=== PATIENT | female | born 1985 | race Caucasian/White ===

== ENCOUNTER 2022-03-19 05:34 | Outpatient (CLI) | payer SELFPAY ==
[~2022-03-19] VITALS: Ht 166 cm; Wt 104.1 kg
[2022-03-22] MEDS ORDERED: NF-NORETH5 PO (10:17)
== END 2022-03-22 10:15 ==
LOC: PREOP 05:34
PROVIDERS: ATTEND Obstetrics & Gynecology
DX: Z01.818 Encounter for other preprocedural examination (principal); R13.10 Dysphagia, unspecified; Z98.890 Other specified postprocedural states

== ENCOUNTER 2022-03-26 08:15 | Day surgery (SDC) | payer OTHER ==
[2022-03-26] VITALS (11 sets, daily range): BP systolic 95–135; BP diastolic 54–100
[~2022-03-26] VITALS: Ht 166 cm; Wt 104.1 kg
[~2022-03-26 08:15] MED LIST: NF-NORETH5 PO
[2022-03-26] MEDS ORDERED: ceFAZolin INJECTION 1,000 MG VIAL IV ONE (08:30)
[2022-03-26 08:56] LABS: BASOPHILS % (AUTO) 0 % (0-10); EOSINOPHILS # (AUTO) 0.1 10^3/uL (0.0-0.3); EOSINOPHILS % (AUTO) 2 % (0-10); HEMATOCRIT 44 % (35-52); HEMOGLOBIN 14.9 g/dL (11.5-16.0); LYMPHOCYTES # (AUTO) 2.7 10^3/uL (1.0-4.0); LYMPHOCYTES % (AUTO) 33 % (12-44); MEAN CORPUSCULAR HEMOGLOBIN 32 pg (25-34); MEAN CORPUSCULAR HGB CONC 34 g/dL (32-36); MEAN CORPUSCULAR VOLUME 94 fL (80-99); MEAN PLATELET VOLUME 9.9 fL (9.0-12.2); MONOCYTES # (AUTO) 0.6 10^3/uL (0.0-1.0); MONOCYTES % (AUTO) 8 % (0-12); NEUTROPHILS # (AUTO) 4.6 10^3/uL (1.8-7.8); NEUTROPHILS % (AUTO) 57 % (42-75); PLATELET COUNT 249 10^3/uL (130-400); WHITE BLOOD COUNT 8.1 10^3/uL (4.3-11.0)
[2022-03-26] MEDS: LACTATED RINGERS 1,000 ML IV PRN ×3 (09:06→11:23)
[2022-03-26] MEDS ORDERED: CLINDAMYCIN 600 MG/50 ML IVPB 50 ML IV ONE ×2 (09:09→09:15)
[2022-03-26] MEDS ORDERED: BUPIVACAINE 0.25% 30 ML (SENSORCAINE) VIAL ONE (09:15)
--- NOTE | 2022-03-26 09:30 | Progress Note-Pre Operative ---
Pre-Operative Progress Note Date of Available H&P: Mar 26, 2022 Date H&P Reviewed: Mar 26, 2022 Time H&P Reviewed: 09:10 History & Physical: H&P Reviewed, Patient Examed, No changes noted Pre-Operative Diagnosis: CPP, AUB, DyspareMONTANA Crum DO Mar 26, 2022 09:30
--- NOTE | 2022-03-26 09:32 | Discharge Inst-Women's Service ---
Discharge Inst-Women's Serv Depart Medication/Instructions New, Converted or Re-Newed RX: Transmitted to Pharmacy Problems Reviewed?: No Consults/Follow Up Additional Follow Up: Yes Orders/Referrals Dr. Collins in 7-10 days Activity Driving Instructions: You May Drive NO SMOKING: NO SMOKING Nothing Inside Vagina: No Douching, No Tampons Diet Discharge Diet: No Restrictions Symptoms to Report to : Bleeding Excessive, Pain Increased, Fever Over 101 Degrees F, Vaginal Bleeding Increase, Questions/Concerns For Any Problems or Questions: Contact Your Physician MONTANA COLLINS DO Mar 26, 2022 09:32
[2022-03-26] MEDS ORDERED: ACHD5005 PO (09:56)
[2022-03-26] MEDS ORDERED: IBUP-1773 PO (09:56)
[2022-03-26] MEDS ORDERED: MIDAZOLAM 2 MG/2 ML (VERSED) VIAL ONE (10:00)
[2022-03-26] MEDS ORDERED: ONDANSETRON 4 MG/2 ML (SDV) Z0FRAN IVP PRN ×2 (10:00→11:15)
[2022-03-26] MEDS ORDERED: KETOROLAC 30 MG/ML VIAL IVP ONE (10:00)
[2022-03-26] MEDS ORDERED: HYDROcodone/APAP 5 MG/325 MG (LORTAB) TAB PO PRN (10:00)
[2022-03-26] MEDS ORDERED: D5 LR IV SOLUTION 1,000 ML IV SCH (10:00)
[2022-03-26] MEDS ORDERED: fentaNYL INJ 100 MCG/2 ML AMP ONE (10:01)
[2022-03-26] MEDS ORDERED: NEOSTIGMINE (BLOXIVERZ ) 1 MG/1ML 10 ML VIAL ONE (10:59)
[2022-03-26] MEDS ORDERED: SEVOFLURANE (ULTANE) 15 ML INHAL SOLN ONE ×2 (10:59→11:02)
[2022-03-26] MEDS ORDERED: ONDANSETRON 4 MG/2 ML (SDV) Z0FRAN ONE (10:59)
[2022-03-26] MEDS ORDERED: LIDOCAINE PF 2% 5 ML (XYLOCAINE) VIAL ONE (10:59)
[2022-03-26] MEDS ORDERED: proPOfol 200 MG/20 ML (DIPRIVAN) VIAL IV ONE (10:59)
[2022-03-26] MEDS ORDERED: GLYCOPYRROLATE 0.2 MG/ML (ROBINUL) 2 ML VIAL ONE (10:59)
[2022-03-26] MEDS ORDERED: ROCURONIUM 50 MG/5 ML (ZEMURON) VIAL IV ONE (11:00)
[2022-03-26] MEDS ORDERED: morphine INJ 10 MG/ML 1ML (SYR OR VIAL) IVP ONE (11:15)
[2022-03-26] MEDS ORDERED: fentaNYL INJ 100 MCG/2 ML AMP IVP ONE (11:15)
--- NOTE | 2022-03-26 11:16 | Anesthesia-General Post-Op ---
General Patient Condition Mental Status/LOC: Same as Preop Cardiovascular: Satisfactory Nausea/Vomiting: Absent Respiratory: Satisfactory Pain: Controlled Complications: Absent Post Op Complications Complications None Follow Up Care/Instructions Patient Instructions None needed. Anesthesia/Patient Condition Patient Condition Patient is doing well, no complaints, stable vital signs, no apparent adverse anesthesia problems. No complications reported per nursing. BOSTON LEE CRNA Mar 26, 2022 11:16
--- NOTE | 2022-03-26 21:17 | OPERATIVE REPORT ---
DATE OF SERVICE: PREOPERATIVE DIAGNOSES: 1. A 36-year-old female with chronic pelvic pain. 2. Dysmenorrhea. 3. Dyspareunia. POSTOPERATIVE DIAGNOSES: 1. A 36-year-old female with chronic pelvic pain. 2. Dysmenorrhea. 3. Dyspareunia. 4. Suspicion for endometriosis of the pelvic anatomy as well as adhesions of the omentum to the anterior abdominal wall. PROCEDURE: Laparoscopic lysis of adhesions with bilateral salpingectomy, dilatation and curettage. SURGEON: Rey Reid DO ANESTHESIA: General endotracheal. ESTIMATED BLOOD LOSS: Minimal. URINE OUTPUT: 70 mL at the end of procedure. FLUIDS: 800 mL lactated Ringer's solution. FINDINGS: Grossly normal-appearing external female genitalia. Small to moderate amount of endometrial curettings collected on endometrial curette. Grossly normal appearing uterus, grossly normal appearing bilateral ovaries, fallopian tubes that were distended with a darken substance suspicious for endometriosis from the fallopian tubes. SPECIMEN SENT: Bilateral fallopian tubes and endometrial curettings. INDICATIONS FOR PROCEDURE: This 36-year-old female is a patient that sought care in my office for concerns with ongoing issues with chronic pelvic pain and heavy periods as well as pain with intercourse. She desired to proceed with hysterectomy on her initial consultation. She has completed childbearing and is frustrated with the amount of pain and bleeding that she is having. However, discussed with the patient evaluation for this included either D and C and confirmation of possible endometriosis has never been done before. She has been on oral contraceptive pills in the past and norethindrone more recently. Higher dose was increased to control the amount of heavy bleeding that she was having. I discussed with the patient proceeding with D and C as an evaluation of the endometrium as well as laparoscopy to evaluate the pain and either confirm or deny the presence of endometriosis. Risks of procedure were discussed with the patient in detail including risk of bleeding, infection, damage to surrounding structures including, but not limited to bowel, bladder, ureter, kidneys, possible need for reoperation, postoperative complications that may occur, recovery timeframe, risk from anesthesia and even . After everything was discussed with the patient in detail, consent was obtained, the patient was taken to the operating room. OPERATIVE REPORT IN DETAIL: Once in the operating room, general anesthesia was found to be adequate. She was placed in the dorsal lithotomy position, prepped and draped in normal sterile fashion. Timeout was performed. Gutierrez catheter was placed using sterile technique. A weighted speculum inserted to the patient's vagina. Right angle retractor was used to visualize the cervix, which was grasped at 12 o'clock position using a long Allis clamp. I then gently sound the uterine cavity, depth was found to be 8 cm. I then gently dilated the cervix using Hegar dilators to maximum dilatation approximately 8 cm, at which point I performed a gentle curettage of the endometrium and collect this tissue as endometrial curettings. I then placed a ThingMagic uterine manipulator to a depth of 8 cm deploying the balloon and then removed all the instruments from the patient's vagina, performed change of gloves, turned my attention to the abdomen where infraumbilically I infiltrated this area using 0.25% Marcaine, introduced a Veress needle through this area until intraperitoneal placement was confirmed using saline drop test. Opening pressure 4 mmHg was noted, proceeded to max pressure of 15 mmHg, at which point I removed the Veress needle and introduced a 5 mm blunt laparoscopic trocar through the incision after extending the incision using a knife. Once the trocar is in place, I am able to confirm intraperitoneal placement using the laparoscope. There was no evidence of damage from entry site. There are omental adhesions along the lower anterior abdominal wall. I bring in the second trocar, this was a 5 mm trocar in the left lower quadrant in similar fashion was placed; however, at this time this was placed under direct visualization of the laparoscope. Once this was in place, I used EndoShears device to take down the adhesions of the anterior abdominal wall. This is done carefully with no bleeding noted during the process of dissection. After all of these adhesions were taken down, the patient was placed in steep Trendelenburg. I am able to visualize all my pelvic anatomy as defined in my findings above. I decided at that point to remove the fallopian tubes, both due to their appearance of distention with dark substance matter that may be consistent with endometriosis, but also because the patient does not desire any future childbearing we discussed this prior to her surgery. I started the proximal isthmic portion using a LigaSure device and sealed and transected down the mesosalpinx amputating the fallopian tube, transecting proximally and amputating away from its surrounding blood supply as I go. I did this bilaterally as both tubes are affected by the same disorder it appears. Both fallopian tubes were removed through the left lower quadrant trocar site. There was no active bleeding noted from any of my dissection planes. I then copiously irrigated the pelvis using normal saline. Once again, there was no active bleeding noted from any of my dissection planes. I inspected the anterior and posterior cul-de-sacs around the uterus and bilateral ovaries and ovarian fossa. All are within normal limits. At that point, I deemed the procedure to be complete due to no other pathology identified grossly on inspection. I then had the patient taken out of steep Trendelenburg where I removed the left lower quadrant using direct visualization of the laparoscope. The infraumbilical trocars left in place to release insufflation and introduced 10 mL of 0.25% Marcaine at peritoneal cavity for postoperative management. I then removed this trocar as well. The skin reapproximated at both incisions using Dermabond. Band-Aids were placed over the incisions. Gutierrez catheter and Kronner uterine manipulator were removed at the end of the procedure. The patient tolerated the procedure well and sent to recovery area in stable condition. Lap and sponge counts were correct at the end of procedure. Instrument counts correct as well. A 600 mg of ____ was given preoperatively for infection prophylaxis. Job ID: [id number] DocumentID: [id number] Dictated Date: 03/26/2022 11:25:37 Square Cutter Date: 03/26/2022 20:56:24 Dictated By: DO ERIKA AKERS
== END 2022-03-26 13:21 | disposition home or self-care (01) ==
LOC: SDC 08:15
PROVIDERS: ATTEND Obstetrics & Gynecology
DX: N94.6 Dysmenorrhea, unspecified (principal); N94.10 Unspecified dyspareunia; G89.29 Other chronic pain; R10.2 Pelvic and perineal pain; F17.210 Nicotine dependence, cigarettes, uncomplicated; N94.5 Secondary dysmenorrhea; N92.0 Excessive and frequent menstruation with regular cycle; N93.8 Other specified abnormal uterine and vaginal bleeding; E66.01 Morbid (severe) obesity due to excess calories; Z68.37 Body mass index [BMI] 37.0-37.9, adult
CPT/HCPCS: 36415; 84703; 85025; 86850; 86900; 86901; 87081; 94664